=== PATIENT | female | born 1980 | race Caucasian/White ===

== ENCOUNTER 2021-10-03 06:08 | Day surgery (SDC) | payer MEDICAID ==
[2021-09-27 15:41] LABS: BASOPHILS % (AUTO) 0.7 % (0-1); EOSINOPHILS # (AUTO) 0.1 X10'3 (0-0.9); EOSINOPHILS % (AUTO) 0.8 % (0-6); LYMPHOCYTES # (AUTO) 1.9 X10'3 (1.1-4.8); LYMPHOCYTES % (AUTO) 26.3 % (21-51); MEAN CORPUSCULAR HGB CONC 33.7 g/dL (33.0-36.5); MEAN CORPUSCULAR VOLUME 92.1 FL (78-98); MEAN PLATELET VOLUME 9.6 FL (7.4-10.4); MONOCYTES # (AUTO) 0.6 X10'3 (0-0.9); MONOCYTES % (AUTO) 8.4 % (2-12); NEUTROPHILS # (AUTO) 4.7 X10'3 (1.8-7.7); NEUTROPHILS % (AUTO) 63.8 % (42-75); PRE OP HEMATOCRIT 39.7 % (35.0-45.0); PRE OP HEMOGLOBIN 13.4 g/dL (12.0-16.0); PRE OP PLATELET COUNT 221 X10'3 (140-440); RED BLOOD COUNT 4.31 X10'6 (4.20-5.60); RED CELL DISTRIBUTION WIDTH 13.7 % (11.5-14.5)
[2021-09-27 15:43] LABS: CLARITY,URINE SLIGHTLY CLOUDY (Clear); COLOR,URINE YELLOW (Yellow); GLUCOSE, URINE NEGATIVE (Neg); KETONES,URINE TRACE mg/dl (Neg); LEUKOCYTE ESTERASE ,URINE NEGATIVE (Neg); NITRITES, URINE NEGATIVE (Neg); OCCULT BLOOD,URINE SMALL (Neg); PH,URINE 6.5 (4.8-8.0); PROTEIN,URINE NEGATIVE (Neg); UROBILINOGEN,URINE 0.2 E.U/dL (0.2-1.0)
[2021-09-27 15:44] LABS: UA COLLECTION TYPE NON-SPECIFIED
[2021-09-27 15:52] LABS: PRE OP PROTIME 10.5 SECONDS (9.0-12.0)
[2021-09-27 15:53] LABS: ALBUMIN 3.9 G/DL (3.4-5.0); ALBUMIN/GLOBULIN RATIO 1.1 (1.1-1.5); ALKALINE PHOSPHATASE 59 IU/L (46-116); BLOOD UREA NITROGEN 15 MG/DL (7-18); BUN/CREATININE RATIO 19.7 (6.6-38.0); CHLORIDE 105 MMOL/L (99-107); CREATININE 0.76 MG/DL (0.40-0.90); PRE OP ALT 30 U/L (30-65); PRE OP ANION GAP 7 (8-16); PRE OP AST 13 U/L (10-37); PRE OP BILIRUB, TOTAL 0.3 MG/DL (0.0-1.0); PRE OP GLUCOSE 83 MG/DL (70-104); PRE OP POTASSIUM 3.8 MMOL/L (3.4-5.1); PRE OP SODIUM 142 MMOL/L (135-145); TOTAL CARBON DIOXIDE 30.4 MMOL/L (24-32); TOTAL PROTEIN 7.4 G/DL (6.4-8.2); eGFR 84 ML/MIN
[2021-09-27 16:02] LABS: SQUAMOUS EPITHELIAL CELL,UR MANY /LPF (FEW)
[2021-09-27 16:06] LABS: WBC,URINE 0-4 /HPF (0-4)
[2021-09-27 16:10] LABS: BACTERIA,URINE 2+ /HPF (Neg)
[2021-09-27 16:11] LABS: AMORPHOUS URATES 2+; TRANSITIONAL EPI CELLS,URINE FEW /HPF
[2021-10-03] VITALS (9 sets, daily range): BP systolic 124–156; BP diastolic 79–93
[~2021-10-03] VITALS: Ht 167.6 cm; Wt 88.7 kg
[~2021-10-03 06:08] MED LIST: ALBU8.5H17 INH; ceFOXitin inj 1,000 MG in dextrose 5%-water 100 ML IV ONE; famotidine 20mg tablet PO ONE; ringers solution, lacted 1,000 ML IV SCH
[2021-10-03] MEDS ORDERED: BUPIVAcaine/PF 2.5 mg/ml (0.25%) 30ml vial ONE (07:01)
[2021-10-03] MEDS ORDERED: midazolam 1 mg/ML 2ml injection ONE (08:24)
[2021-10-03] MEDS ORDERED: fentaNYL /PF 50mcg/ml 5ml ampule ONE (08:24)
[2021-10-03] MEDS ORDERED: BUPIVACAINE liposomal/PF 13.3 MG/ML vial IM ONE (08:46)
[2021-10-03] MEDS ORDERED: BUPIVAcaine/PF 2.5mg/ml (0.25%) 10ml vial ONE (08:46)
[2021-10-03] MEDS ORDERED: labetalol 20mg/4ml (5mg/ml) syringe IV PRN (08:55)
[2021-10-03] MEDS ORDERED: hydrALAZINE 20mg/ml inj. IV PRN (08:55)
[2021-10-03] MEDS ORDERED: acetaminophen 1,000mg/100ml IV 100 ML IV PRN (08:55)
[2021-10-03] MEDS ORDERED: proCHLORperazine 10 MG/2 ml inj IV PRN (08:55)
[2021-10-03] MEDS ORDERED: ringers solution, lacted 1,000 ML IV SCH (08:55)
[2021-10-03] MEDS ORDERED: morphine 2 MG/ML inj. syringe IV PRN (08:55)
[2021-10-03] MEDS ORDERED: ondansetron/PF 4mg/2ml inj IV PRN (08:55)
[2021-10-03] MEDS ORDERED: meperidine/PF 25mg/ml syringe IV PRN ×3 (08:55)
[2021-10-03] MEDS ORDERED: LIDOcaine 2% (20mg/ml) 5ml vial ONE (08:57)
[2021-10-03] MEDS ORDERED: LIDOcaine 1% (10mg/ml) 2ml vial ONE (08:57)
[2021-10-03] MEDS ORDERED: rocuronium 10mg/ml inj IV ONE (08:57)
[2021-10-03] MEDS ORDERED: ceFOXitin 1000 MG inj ONE (08:57)
[2021-10-03] MEDS ORDERED: propofol inj 20 ML IV ONE (08:57)
[2021-10-03] MEDS ORDERED: ondansetron/PF 4mg/2ml inj ONE (09:01)
[2021-10-03] MEDS ORDERED: dexamethasone sod phosphate 4mg/ml inj. ONE (09:01)
[2021-10-03] MEDS ORDERED: neostigmine methylsulfate 1 MG/ML 10ml vial ONE (10:15)
[2021-10-03] MEDS ORDERED: glycopyrrolate 0.2mg/ml inj ONE (10:15)
--- NOTE | 2021-10-03 10:40 | NUR ---
Received from OR via [facility], accompanied by Anesthesiologist DR. BAKER and report given by Anesthesiolgist AND OR NURSE. PT ARRIVED DROWSY ON 10L 02 VIA MASK. IV WAS REPLACED IN OR BY DR. BAKER. 18 G IV TO RIGHT HAND. 3 BANDAID SITES TO LEFT SIDE OF ABDOMEN C/D/I. VSS. WILL CONTINUE TO MONITOR. Addendum: 10/03/21 at 1049 by Selina Elkins RN Amended: Links added.
[2021-10-03] MEDS: morphine 4 MG/ML inj SYRINge IV PRN ×2 (10:59→11:31)
--- NOTE | 2021-10-03 12:05 | NUR ---
PT HAS MET D/C CRITERIA. PAIN CONTROLLED AND SURGERY SITES C/D/I. IV D/C'D. I HAVE REVIEWED D/C INSTRUCTIONS WITH PATIENT AND THEY HAVE VERBALIZED UNDERSTANDING OF INSTRUCTIONS. PATIENT D/C HOME WITH ALL BELONGINGS AND GAVE TRANSPORT. Addendum: 10/03/21 at 1219 by Selina Elkins RN Amended: Links added.
== END 2021-10-03 12:05 | disposition home or self-care (01) ==
LOC: PAS 06:08
PROVIDERS: ATTEND Surgery
DX: K43.2 Incisional hernia without obstruction or gangrene (principal); E66.9 Obesity, unspecified; Z68.31 Body mass index [BMI] 31.0-31.9, adult; Z79.899 Other long term (current) drug therapy; Z79.01 Long term (current) use of anticoagulants; Z98.51 Tubal ligation status; Z90.710 Acquired absence of both cervix and uterus; Z98.890 Other specified postprocedural states; Z87.891 Personal history of nicotine dependence; Z87.442 Personal history of urinary calculi; Z91.013 Allergy to seafood; Z86.16 Personal history of COVID-19
CPT/HCPCS: 36415; 49654; 64488; 80053; 81001; 82948; 85025; 85610; 85730; 93005; C1781; C9290; J0694; J1100; J2175; J2250; J2270; J2405; J2704; J2710; J3010; J3490; J7030; J7060; J7120; S2900; Z7506; Z7508; Z7512; A4215; A4618